=== PATIENT | female | born 1990 | race Caucasian/White ===

== ENCOUNTER → 2017-03-06 | Outpatient (CLI) | payer MEDICAID ==
[~2017-03-06] MED LIST: KEFLEX 500MG.500 MG PO; MOTRIN 400MG.400 MG PO; NICOTINE T21 MG/24 H TD; PERCOCET 5/3251 EACH PO; PRENATAL PLUS1 TA1 PO
--- NOTE | 2017-03-06 17:00 | RADIOLOGY REPORT PS360 ---
US PELVIS-TRANSVAGINAL ONLY HISTORY: Pelvic pain, evaluate IUD PELVIC PAIN ORDERING PHYSICIAN: Michael Gong MD PATIENT AGE: 26 years COMPARISON: None FINDINGS: The uterus is 8 x 4 x 4.5 cm with a combined endometrial thickness of 4 mm. The IUD is in the lower uterine segment and not in the normal position within the endometrium in the body of the uterus. No uterine mass evident. Left ovary is 2.7 x 1.2 cm and contains a small follicle. The right ovary is 3.6 x 2 cm and contains multiple follicles have a polycystic appearance largest follicle measuring approximately 1 cm. No cul-de-sac fluid evident. Bilateral ovarian blood flow is present. IMPRESSION: 1. IUD is in the lower uterine segment not in the normal position within the endometrium in the body of the uterus. 2. Polycystic appearance of the right ovary
== END ==
LOC: RAD 02-21 14:00
DX: R10.2 Pelvic and perineal pain (principal); Z30.431 Encounter for routine checking of intrauterine contraceptive device